=== PATIENT | female | born 1935 | race Caucasian/White ===

== ENCOUNTER 2024-12-01 20:27 | Emergency (ER) | payer MEDICARE, OTHER ==
[~2024-12-01] VITALS: Ht 162.6 cm; Wt 82.9 kg
[2024-12-01 20:58] LABS: BLOOD/HGB, URINE NEGATIVE (Negative); KETONE, URINE TRACE (Negative); LEUK ESTERASE, URINE SMALL (negative); NITRITE, URINE NEGATIVE (negative)
[2024-12-01 21:03] LABS: BACTERIA, URINE 4+ /hpf (negative); CASTS, URINE NONE SEEN \\lpf; CRYSTALS, URINE NONE SEEN (0-1+); EPITHELIAL CELLS, URINE SQUAMOUS 1+ /lpf (0-1+); REFLEX CULTURE, URINE Yes (No)
[2024-12-01] MEDS ORDERED: LEVOTHYROXINE25 MC1 PO (21:10)
[2024-12-01 21:44] LABS: BASOPHILS 0.8 % (0.1-1.2); EOSINOPHILS 2.3 % (0.7-5.8); LYMPHOCYTES 35.6 % (19.3-51.7); MCH 31.8 PG (25.6-32.2); MCHC 32.7 g/dL (32.2-35.5); MCV 97.3 fL (79.4-94.8); MONOCYTES 10.1 % (4.7-12.5); NEUTROPHILS 50.9 % (34.0-71.1); RBC 3.74 M/uL (3.93-5.22)
[2024-12-01 21:48] LABS: AMPHETAMINES, URINE NEGATIVE (NEGATIVE); BARBITURATES, URINE NEGATIVE (NEGATIVE); BENZODIAZEPINE, URINE NEGATIVE (NEGATIVE); CANNABINOID, URINE NEGATIVE (NEGATIVE); COCAINE, URINE NEGATIVE (NEGATIVE); ECSTASY, URINE NEGATIVE (NEGATIVE); FENTANYL, URINE NEGATIVE (NEGATIVE); METHADONE, URINE NEGATIVE (NEGATIVE); OPIATES, URINE NEGATIVE (NEGATIVE); OXYCODONE, URINE NEGATIVE (NEGATIVE); PHENCYCLIDINE, URINE NEGATIVE (NEGATIVE)
[2024-12-01 22:37] LABS: ALT (SGPT) 15.0 U/L (14-59); AST (SGOT) 15.0 U/L (15-37); GLOMERULAR FILTRATION RATE,EST 61.0 mL/min (>60); PROTEIN, TOTAL 7.0 g/dL (6.4-8.2); UREA NITROGEN 20.0 mg/dL (7-18)
[2024-12-01] MEDS ORDERED: CEPHALEXIN500 M1 PO (22:45)
[2024-12-01 22:55] VITALS: BP 161/89
[2024-12-01] MEDS ORDERED: CEPHALEXIN MONOHYDRATE 500 MG HOME.PACK PO ONE (23:00)
== END 2024-12-01 23:03 | disposition home or self-care (01) ==
LOC: ED 20:27
PROVIDERS: Emergency Medicine
DX: R41.0 Disorientation, unspecified (principal); N39.0 Urinary tract infection, site not specified
CPT/HCPCS: 36415; 70450; 80053; 80307; 81001; 82140; 85025; 87088; 99285-25; A9270; G0480